=== PATIENT | male | born 1955 | race Caucasian/White ===

== ENCOUNTER 2022-07-03 11:15 | Outpatient (RCR) | payer MEDICARE, SELFPAY | END 2023-03-27 23:59 | disposition home or self-care (01) | PROVIDERS: Visit Provider Nurse Practitioner Family | DX: M17.0 Bilateral primary osteoarthritis of knee (principal); Z51.89 Encounter for other specified aftercare | CPT/HCPCS: 97110; 97161 ==

== ENCOUNTER 2022-09-02 19:36 | Emergency (ER) | payer MEDICARE, SELFPAY ==
[2022-09-02 19:40] VITALS: BP 187/105; PULSE 82; RESP 18; TEMP 36.9; O2SAT 96; BMI 32.7
--- NOTE | 2022-09-02 19:53 | ED.WOUNDLAC ---
HPI - Wound/Laceration General Chief Complaint: Laceration/Wound Stated Complaint: Cut on head Time Seen by Provider: 09/02/22 19:45 History of Present Illness HPI narrative: This 67-year-old male comes in for evaluation and treatment of a scalp laceration that occurred this morning. He was getting out of his pickup and bumped his head. He said there was not much bleeding and he did not have loss of consciousness. He is not on any blood thinners. He does not report a headache. He comes in this evening thinking that he should probably have it checked out. Related Data Home Medications Medication Instructions Recorded Confirmed amlodipine 10 mg tablet 10 mg PO QDAY 08/26/22 09/02/22 atenolol 50 mg tablet 50 mg PO QDAY 08/26/22 09/02/22 hydrochlorothiazide 50 mg tablet 50 mg PO QDAY 08/26/22 09/02/22 losartan 100 mg tablet 100 mg PO QDAY 08/26/22 09/02/22 meloxicam 15 mg tablet 15 mg PO QDAY 08/26/22 09/02/22 sodium fluoride 1.1 %-potassium 1 applic PO DAILY 08/26/22 09/02/22 nitrate 5 % dental paste tadalafil 20 mg tablet 20 mg PO PRN 08/26/22 08/26/22 Allergies Allergy/AdvReac Type Severity Reaction Status Date / Time No Known Drug Allergies Allergy Verified 09/02/22 19:44 Review of Systems Status of ROS: Reports: 10 or more systems reviewed and unremarkable except as noted in History and below Narrative: Constitutional: No fevers, no weight gain or loss. Eyes: No discharge. No vision changes. HENT: No congestion, no sore throat, no ear pain. Cardiovascular: No chest pain, no palpitations. Respiratory: No shortness of breath, no wheezes, no cough. Gastrointestinal: No abdominal pain, no vomiting, no diarrhea. Genitourinary: No dysuria, no hematuria. Musculoskeletal: Normal range of motion. Skin: No rashes, no pruritis. Neurological: No dizziness, weakness, sensory change, speech change. Endo/Heme/Allergies: No bruising or bleeding. No polydipsia. Pysch: no suicidality, no anxiety, no insomnia. All other systems reviewed and are negative. [facility] Medical History Encounter related to worker's compensation claim (10/19/18) Surgical History History of appendectomy History of back surgery Family History Other High cholesterol Renal cancer Social History Smoking Status: Former smoker Do you use any of these nicotine containing products: None Second hand tobacco smoke exposure: No How often do you have a drink containing alcohol: never AUDIT-C Alcohol total score: 0 Non-prescribed substance use: denies use Exam Narrative: Exam Narrative: Constitutional: Well-developed, well-nourished, no acute distress. HEENT: 2 cm irregular laceration the top of the head in the region of the scalp. He has very little hair in this area. Neck: Normal range of motion. Nontender. Supple. Heart: Regular. No murmurs. Normal rate. Intact distal pulses. Lungs: Clear to auscultation. No chest discomfort. No wheezes, rhonchi, or rales. Abdomen: Normal bowel sounds. Nontender. No rebound tenderness. Genitalia: Deferred. Back: No midline tenderness. Normal range of motion. Extremities: Normal range of motion. No injury. Skin: Intact. No rash. Warm. No erythema or pallor. Neurologic: No altered sensation. No weakness. Alert and oriented. Psychiatric: No suicidality. No anxiety or depression. No insomnia. Nursing notes and vitals signs are reviewed. Const: Vital Signs, click to edit/add: Vital Signs - 24 hr 09/02/22 19:40 Temperature 98.5 F Pulse Rate [Right Pulse Oximeter] 82 Respiratory Rate 18 Blood Pressure [Ri ght Upper Arm] 187/105 H Pulse Oximetry 96 Oxygen Delivery Me thod Room Air Course Vital Signs Vital signs: Initial Vital Signs Temperature 98.5 F 09/02/22 19:40 Temperature Source Temporal Artery Scan 09/02/22 19:40 Pulse Rate 82 09/02/22 19:40 Respiratory Rate 18 09/02/22 19:40 Blood Pressure 187/105 H 09/02/22 19:40 Blood Pressure Mean 132 09/02/22 19:40 Blood Pressure Position Sitting 09/02/22 19:40 Pulse Oximetry 96 09/02/22 19:40 Oxygen Delivery Method 09/02/22 19:40 Vital Signs Temperature 98.5 F 09/02/22 19:40 Pulse Rate 82 09/02/22 19:40 Respiratory Rate 18 09/02/22 19:40 Blood Pressure 187/105 H 09/02/22 19:40 Pulse Oximetry 96 09/02/22 19:40 Oxygen Delivery Method 09/02/22 19:40 Temperature 98.5 F 09/02/22 19:40 Pulse Rate 82 09/02/22 19:40 Respiratory Rate 18 09/02/22 19:40 Blood Pressure 187/105 H 09/02/22 19:40 Pulse Oximetry 96 09/02/22 19:40 Oxygen Delivery Method 09/02/22 19:40 MDM - Wound/Laceration MDM Narrative Medical decision making narrative: This patient has a wound on the top of his head that occurred this morning. The skin edges are rather well approximated and there is no active bleeding. The wound is on its way to recovery. I did cleanse the wound but did not open it to explored to its base. My opinion into the patient was that this wound seems to be healing properly on its own. I did apply Dermabond to assist in this process. Discharge Plan Discharge Clinical Impression: Laceration of scalp Patient Disposition: Home, Self-Care Condition: Stable Additional Instructions: Use [id number]-elp-[id number] medicines as needed and directed. Follow up with MD or return if worsening. Prescriptions: No Action sodium fluoride-pot nitrate 1.1-5 % paste 1 applic PO DAILY amlodipine 10 mg tablet 10 mg PO QDAY Label Comments: TAKE 1 TABLET BY MOUTH EVERY DAY meloxicam 15 mg tablet 15 mg PO QDAY Label Comments: TAKE 1 TABLET BY MOUTH EVERY DAY atenolol 50 mg tablet 50 mg PO QDAY Label Comments: TAKE 1 TABLET BY MOUTH EVERY DAY losartan 100 mg tablet 100 mg PO QDAY Label Comments: TAKE 1 TABLET BY MOUTH EVERY DAY hydrochlorothiazide 50 mg tablet 50 mg PO QDAY Label Comments: TAKE 1 TABLET BY MOUTH EVERY DAY tadalafil 20 mg tablet 20 mg PO PRN Label Comments: TAKE 1 TABLET BY MOUTH DAILY IF NEEDED FOR ERECTILE DYSFUNCTION. TAKE 30 MINUTES BEFORE SEX Follow Up/Referrals: Provider,Not a Local [Primary Care Provider] - Stand Alone Forms: [facility] Info Instructions
--- NOTE | 2022-09-02 19:56 | ED.NURSE ---
Last tetn 05/18/2018
== END 2022-09-02 20:21 | disposition home or self-care (01) ==
LOC: ED 20:09
PROVIDERS: Emergency Provider Emergency Medicine Emergency Medical Services
DX: S01.01XA Laceration without foreign body of scalp, initial encounter (principal); W26.9XXA Contact with unspecified sharp object(s), initial encounter
CPT/HCPCS: 12001; 99283; 99284

== ENCOUNTER 2024-07-11 07:10 | Emergency (ER) | payer MEDICARE, SELFPAY ==
[2024-07-11 07:15] VITALS: BP 191/111; PULSE 125; RESP 22; TEMP 36.4; O2SAT 95; BMI 34.0
--- NOTE | 2024-07-11 07:18 | CT_ITS ---
Patient: DONITA THOMAS Facility:?[facility] Patient ID:?[id number] Site Patient ID:?[id number]. Site :?[id number] Study:?CT-Head w/o-07/11/2024 7:28:50 AM Ordering Physician:Jessica Martinez Final Report: INDICATION: Injury COMPARISON: None TECHNIQUE: CT examination of the head was performed as axial sections without intravenous contrast. Images were obtained from the vertex of the skull through the skull base. Please note that all CT scans at this facility use dose modulation, iterative reconstruction, and/or weight-based dosing when appropriate to reduce radiation dose to as low as reasonably achievable. FINDINGS: The brain shows no sign of mass lesion, mass effect, hemorrhage, or edema. The ventricles and sulci are normal in appearance for the patient`s age. The visualized portions of the orbits are normal in appearance. Soft tissue injury in the region the supraorbital area on the left. No visible calvarial fracture. There is gas within the soft tissues related most likely laceration. No foreign body. The osseous structures are normal in their appearance with no sign of abnormality in the skull base or calvarium. IMPRESSION: 1. No acute intracranial posttraumatic findings. 2. Soft tissue injury centered in the left supraorbital area. There is gas within soft tissues and induration but no foreign body or subjacent calvarial injury. The orbits as visualized appear normal. Please note that all CT scans at this facility use dose modulation, iterative reconstruction, and/or weight-based dosing when appropriate to reduce radiation dose to as low as reasonably achievable. Dictated by Laci Ruiz MD @ 07/11/2024 7:44:13 AM Signed by:?Laci Ruiz MD @07/11/2024 7:44:13 AM (Electronic Signature)
[2024-07-11 07:38] VITALS: BP 166/106; PULSE 103; O2SAT 96
--- OUTSIDE RECORDS SUMMARY | 2024-07-11 07:46 | XMS_ITS | Data Portability ---
Author Organization [facility] Mikaylalo gy, [facility] Address [address] [place] [address] Care Team Providers Care Mixer Whipped Topping Name Role Phone CHAPITO STEINER Primary Care Provider Assessment No assessment recorded. Plan of Treatment Reminders Order Date Submit Date Provider Last Modified By Organization Details Last Modified Time Details Appointments None record ed. Lab None record ed. Referral None record ed. Procedures None record ed. Surgeries None record ed. Imaging None record ed. Medication Orders None record ed. Patient TargetsNo targets recorded. Patient InstructionsNo instructions recorded. Reason for Referral None Reported. 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 Procedures Surgical History Date Name Laterality Status Provider Name and Address Organization Details Recorded Time 05/18/20 18 Remove lung pneumonectomy completed Not Available [facility] 02/17/2020 14:08:15 06/03/20 16 Colonoscopy thru stoma spx completed Not Available [facility] 02/17/2020 14:08:15 01/16/20 16 Removal of hydrocele completed Not Available [facility] 02/17/2020 14:08:15 04/24/20 15 Us urine capacity measure completed Not Available [facility] 02/17/2020 14:08:15 04/08/19 80 Appendectomy add-on completed Not Available [facility] 02/17/2020 14:08:15 Remove spine lamina 1/2 lmbr completed Not Available [facility] 02/17/2020 14:08:15 Imaging Results None recorded. Procedure Notes None recorded. Medical Equipment None Reported. Allergies No known drug allergies Medications Name Sig Start Date Stop Date Status Note LastModified by Organization Details LastModified Time losartan 50 mg tablet TAKE 1 TABLET BY MOUTH EVERY DAY active Not Available Not Available No t Available atorvastatin 80 mg tablet TAKE 1 TABLET BY MOUTH DAILY active Not Available Not Available Not Available meloxicam 15 mg tablet TAKE 1 TABLET BY MOUTH EVERY DAY active Not Available Not Available No t Available metoprolol succinate ER 100 mg tablet,exten ded release 24 hr TAKE 1 TABLET BY MOUTH DAILY DO NOT CRUSH OR CHEW active Not Available Not Available No t Available clopidogrel 75 mg tablet TAKE 1 TABLET BY MOUTH DAILY active Not Available Not Available Not Available amlodipine 5 mg tablet TAKE 1 TABLET BY MOUTH EVERY DAY active Not Available Not Available No t Available sildenafil 100 mg tablet TAKE ONE TABLET BY MOUTH EVERY DAY NEEDED FOR E.D. TAKE 30 MINUTES TO 4 HOURS BEFORE SEXUAL ACTIVITY, MAX 100MG PER 24 HOURS active Not Available Not Available No t Available losartan 100 mg-hydrochlo rothiazide 25 mg tablet active Not Available Not Available Not Available terbinafine HCl 250 mg tablet active Not Available Not Available Not Available amlodipine 10 mg tablet TAKE 1 TABLET BY MOUTH EVERY DAY active Not Available Not Available No t Available nitroglyceri n 0.4 mg sublingual tablet active Not Available Not Available Not Available hydrochlorot hiazide 25 mg tablet TAKE 1 TABLET (25 MG TOTAL) BY MOUTH DAILY. active Not Available Not Available No t Available losartan 100 mg tablet TAKE 1 TABLET BY MOUTH EVERY DAY active Not Available Not Available No t Available atenolol 50 mg tablet TAKE 1 TABLET BY MOUTH EVERY DAY active Not Available Not Available No t Available tadalafil 20 mg tablet active Not Available Not Available No t Available mirtazapine 7.5 mg tablet TAKE 1 TABLET BY MOUTH AT BEDTIME. active Not Available Not Available No t Available sodium fluoride 1.1 %-potassium nitrate 5 % dental paste APPLY 1 INCH STRIP TO SOFT TOOTHBRUSH, BRUSH FOR AT LEAST 1 MINUTE, EXPECTORATE AND RINSE THOROUGHLY active Not Available Not Available N ot Available GaviLyte-G 236 gram-22.74 gram-6.74 gram-5.86 gram oral solution TAKE 4,000 ML BY MOUTH ONE TIME FOR 1 DOSE active Not Available Not Available N ot Available Vitals Date Recorded Body height Body mass index (BMI) Body weight Provider Name and Address Organization Details Last Updated DateTime 05/05/2023 172.72 cm 31.9 kg/m2 82555.4 g Chitra Camilo [facility] 05/05/2023 14:20:22 Social History Question Answer Notes LastModified by Organizat ion Details LastModified Time Tobacco Smoking Status Former Smoker Chitra Ton santos [facility] 05/05/2023 14:20:48 When Did You Quit Smoking? 16+yearssince lastcigarette Information not available 05/05/2023 Race White Information n ot available 02/17/2020 Marital Status Informati on not available 02/17/2020 What Was The Date Of Your Most Recent Tobacco Screening? 05/05/2023 Information not available 05/05/2023 How Much Tobacco Do You Smoke? 0.25 PPD Information not available 02/17/2020 Sex: Unknown Functional Status None recorded. Mental Status None recorded. Family History Nothing Reported Notes:Hypertension:Mother Hypercholesterolemia:Mother Cancer, breast:Sister Cancer, renal cell:Father Heart attack:Brother Medical History Condition Response High Blood Pressure Y Diabetes N High Cholesterol Y Past Encounters Encounter ID Performer Location Encounter Start Date Encounter Closed Date Diagnosis/Indication Diagnosis SNOMED-CT Code Diagnosis ICD10 Code [id number] Bari Vivas MD [facility] [address] [id number] 05/05/2023 14:14:30 05/14/2023 13:08:10 Primary erectile dysfunction 729877812 N52.9 Health Concerns Section Related Observation LastModified by Organization Detai ls LastModified Time None Recorded Concern Status LastModified by Organization Details LastModified Time None Recorded Advance Directives Directive None Recorded Payers Encounter Date Sequence Insurance Name Policy Number Policy Cerda Covered Member ID Cerda Member ID Guarantor Name 05/05/2023 1 [facility] (MEDICARE REPLACEMENT/A DVANTAGE - PPO) [id number] Edgard Teague [id number] Edgard Teague Notes Date Note Type Note Provider Name and Address Organization Details Recorded Time 05/05/2023 text/html HPI Notes: 68 yo male with history of HTN and smoking (quit in 2017)- presents for evaluation of erectile dysfunction. He had a Left hydrocelectomy (01/18/16) by Dr. Candi Cooper. He reports increasing trouble obtaining and maintaining. He has occasional morning erections. He denies penile pain or curvature. He states libido is good. He has used Viagra 100 mg with okay results. 07/30/21 - He presents penile injection (Trimix) instruction. He notes no change in erections. He voids every 2-4 hours during the day and 2x/night. He denies hesitancy, urgency, or dysuria. 05/05/23 - He presents for follow-up on ED. He states Trimix (0.1-0.2 mL) provides adequate erections. He every 2-4 hours during the day and 2x/night. _ PSA - 0.99 (09/09/14) - 0.90 (05/18/18) - 1.95 (08/23/19) - 1.72 (01/30/21) Bari Vivas MD [address] [place] [address],[facility] [address], [place], [address], [place] [facility] 05/05/2023 14:55:18
--- OUTSIDE RECORDS SUMMARY | 2024-07-11 07:46 | XMS_ITS | Clinical Summary ---
Author Organization [facility] Address [address] [place] [address] Care Team Providers Care Varnish Supervisor Name Role Phone Elsewhere, Pcp Primary Care Provider Unavailabl e Source Comments Patient records contain information from all sites at [facility]. For routine questions regarding patient records, call [phone] during business hours, M-F 8:00 AM - 5:00 PM Central Time. Record requests for emergency care only can be directed to [phone] at any time.[facility] Allergies No known active allergies Medications * This document contains information received from the source organization and may not represent a complete record from that organization. aspirin 81 mg chewable tablet Chew 1 tablet (81 mg total) daily. 30 tablet 11 3 Active atorvastatin (LIPITOR) 80 mg tablet Take 1 tablet (80 mg total) by mouth daily. 90 tablet 3 11/04/2022 4:45 PM PRESCHOOL PRINCIPAL 3 Active nitroglycerin (NITROSTAT) 0.[address] 1 tablet (0.4 mg total) under the tongue every 5 (five) minutes as needed for chest pain. May repeat every 5 minutes for up to 3 doses 100 tablet 11 11/04/2022 4:45 PM PRESCHOOL PRINCIPAL 3 Active sodium fluoride-pot nitrate 1.1-5 % paste as needed. 3 Active metoprolol succinate (TOPROL-XL) 100 mg 24 hr tablet Take 0.5 tablets (50 mg total) by mouth daily. Do not crush or chew. 90 tablet 3 3 Active UNABLE TO FIND Testosterone replacement therapy Active losartan (COZAAR) 100 mg tablet take 1 tablet by mouth every day 90 tablet 3 4 Active hydroCHLOROthia zide (HydroDiuril) 25 mg tablet TAKE 1 TABLET (25 MG TOTAL) BY MOUTH DAILY. 90 tablet 1 4 Active amLODIPine (Norvasc) 10 mg tablet take 1 tablet by mouth every day 90 tablet 3 4 Active Active Problems Problem Noted Date Diagnosed Date Coronary Stent Status Post 12/09/2022 Atherosclerotic Heart Diseas e Of [place] Coronary Artery Without Angina Pectoris 12/09/2022 Mitral Valve Acquired Disorder 12/09/2022 Hypertensive Heart Disease Without Heart Failure 11/03/2022 ST Elevation Myocardial Infa rction Involving Right Coronary Artery 11/03/2022 Dysfunction Erectile 10/30/2022 Overview (10/30/2022): Added automatically from request for surgery [id number] Peyronie's Disease 10/30/2022 Overview (10/30/2022): Added automatically from request for surgery [id number] Obstructive Sleep Apnea Adult 07/11/2021 Umbilical Hernia Without Obstruction Or Gangrene 09/16/2019 Hydrocele 11/13/2009 Overview (10/31/2022): Left Resolved Problems Problem Noted Date Diagnosed Date Resolved Date ST Elevation Myocardial Infa rction Of Unspecified Site 11/03/2022 11/03/2022 Encounters Date Type Department Care Team Description 06/02/2024 Refill Department of Cardiovascular Diseases in [address] [id number] Dakota Hummel, MASOOD, C.N.P. Med Refill from Last 3 Months Family History Relation Name Status Comments Brother (Age 40) [place] Social History Tobacco Use Types Packs/Day Years Used Date Smoking Tobacco: Never Passive Smoke Exposure: Past Smokeless Tobacco: Never Tobacco Cessation:Counseling Given: Not Answered Alcohol Use Standard Drinks/Week Comments Yes 0 (1 standard drink = 0.6 oz pur e alcohol) Humiliation, Afraid, Rape, and Kick questionnair e Answer Date Recorded Within the last year, have y ou been afraid of your partner or ex-partner? No 10/29/2022 Within the last year, have y ou been humiliated or emotionally abused in other ways by your partner or ex-partner? No Within the last year, have y ou been kicked, hit, slapped, or otherwise physically hurt by your partner or ex-partner? No 10/29/2022 Within the last year, have y ou been raped or forced to have any kind of sexual activity by your partner or ex-partner? No 10/29/2022 Social Connection and Isolation Panel [NHANES] A nswer Date Recorded In a typical week, how many times do you talk on the phone with family, friends, or neighbors? Twice a week 10/29/19 How often do you get togethe r with friends or relatives? Once a week 10/29/2022 How often do you attend chur ch or spiritism services? 1 to 4 times per year 10/29/2022 Do you belong to any clubs o r organizations such as nondenominational groups, unions, fraternal or athletic groups, or school groups? Yes 10/29/2022 How often do you attend meet ings of the clubs or organizations you belong to? 1 to 4 times per year 10/29/2022 Are you , , di vorced, , never , or living with a partner? 10/29/2022 AUDIT-C Answer Date Recorded Q1: How often do you have a drink containing alc ohol? Monthly or less 10/29/2022 Q2: How many drinks containi ng alcohol do you have on a typical day when you are drinking? 1 or 2 10/29/2022 Q3: How often do you have si x or more drinks on one occasion? Never 10/29/2022 Overall Financial Resource Strain (CARDIA) Answe r Date Recorded How hard is it for you to pa y for the very basics like food, housing, medical care, and heating? Not hard at all 10/29/2022 [facility] [place] of Occupat ional Health - Occupational Stress Questionnaire Answer Date Recorded Do you feel stress - tense, restless, nervous, or anxious, or unable to sleep at night because your mind is troubled all the time - these days? To some extent 10/29/2022 Exercise Vital Sign Answer Date Recorde d On average, how many days pe r week do you engage in moderate to strenuous exercise (like a brisk walk)? 2 days 10/29/2022 On average, how many minutes do you engage in exercise at this level? 40 min 10/29/2022 Hunger Vital Sign Answer Date Recorded Within the past 12 months, y ou worried that your food would run out before you got the money to buy more. Never true 10/29/19 Within the past 12 months, t he food you bought just didn't last and you didn't have money to get more. Never true 10/29/2022 PRAPARE - Transportation Answer Date Re corded In the past 12 months, has l ack of transportation kept you from medical appointments or from getting medications? No 10/10 In the past 12 months, has l ack of transportation kept you from meetings, work, or from getting things needed for daily living? No 10/29/2022 Housing Stability Vital Sign Answer Bull e Recorded In the last 12 months, was t here a time when you were not able to pay the mortgage or rent on time? No 10/29/2022 In the last 12 months, how many places have you lived? 1 10/29/2022 In the last 12 months, was t here a time when you did not have a steady place to sleep or slept in a retirement (including now)? No 10/29/2022 Nutrition Answer Date Recorded On average, how many serving s of fruits and vegetables do you eat per day (serving size is equal to 1 cup or approximately the size of a tennis ball)? 0-1 10/29/2022 Dental Answer Date Recorded Dental: Regular Dentist Yes 10/29/19 Employment Answer Date Recorded Employment status Employed and actively working without restrictions 10/29/2022 Education Answer Date Recorded What is the highest level of school you have completed or the highest degree you have received? Associate degree: occupational, technical, or vocational program 10/29/2022 Sex and Gender Information Value Date Recorded Sex Assigned at Male 10/30/2022 9:15 AM PRESCHOOL PRINCIPAL Legal Sex Male 4:06 PM PRESCHOOL PRINCIPAL Gender Identity Male 10/30/2022 9:15 AM PRESCHOOL PRINCIPAL Sexual Orientation Straight 10/30/2022 9: 15 AM PRESCHOOL PRINCIPAL Last Filed Vital Signs Vital Sign Reading Time Taken Comments Blood Pressure 148/84 03/10/2023 11:27 AM CDT Pulse 62 03/10/2023 11:27 AM CDT Temperature 36.3 ??C (97.3 ??F) 11/04/2022 3:45 PM CS T Respiratory Rate 27 11/04/2022 3:45 PM PRESCHOOL PRINCIPAL Oxygen Saturation 94% 03/10/2023 11:24 AM CDT Inhaled Oxygen Concentration - - Weight 94.6 kg (208 lb 8.9 oz) 03/10/2023 11:24 AM CDT Height 172.7 cm (5' 8) 11/03/2022 3:30 AM PRESCHOOL PRINCIPAL Body Mass Index 31.71 11/03/2022 3:30 AM PRESCHOOL PRINCIPAL Plan of Treatment Health Maintenance Due Date Last Done Comments CT Colonography 1955 Cologuard 1955 FIT 1955 Hepatitis C Screening 1955 RSV vaccine - (32-36 weeks) or 60+ years (1 - Risk 60-74 years 1-dose series) 2013 Zoster Vaccines (2 of 2) 07/13/2018 05/18/2018 Office Visit for Blood Pressure Check / Re-check 06/10/2023 03/10/2023 Depression Screening (Annual PHQ-2) 09/08/2023 Fall Risk Screen (Annual) 09/08/2023 COVID-19 Vaccine ( season) 2024 09/09/2023, 06/21/2022, 09/22/2021, Additional history exists Influenza Vaccine (#1) 2024 , 05/08/2022, 05/07/2022, Additional history exists Lipid (Cholesterol) Screening 09/05/2024 09/05/2023, 11/03/2022, 04/01/2022, Additional history exists Creatinine Level (Kidney Function Test) 10/20/2024 10/20/2023, 09/05/2023, 04/17/2023, Additional history exists Potassium Level 10/20/2024 10/20/2023, 08/09, 04/17/2023, Additional history exists Sodium Level 10/20/2024 10/20/2023, 08/09, 12/20/2022, Additional history exists Fasting Glucose for Diabetes Screening 09/05/2026 09/05/2023, 12/20/2022, 12/06/2022, Additional history exists DTaP,Tdap,and Td Vaccines (3 - Td or Tdap) 05/18/2028 05/18/2018, 09/17/2006 Colonoscopy 08/08/2032 08/08/2022 Colorectal Cancer Screening 08/08/2032 Pneumococcal vaccine (65+ years) Completed 10/04/2021, 08/19/2020, 05/18/2018 IPV Vaccines Aged Out No longer eligi ble based on patient's age to complete this topic Medical Devices Implanted Type Area Security Control Assessor Device Identifier Shelf Expiration Date Model / Serial / Lot Stnt Synergy Xd De 5.00x12 - [id number] Implanted:Qty : 1 on 11/03/2022 by Neo Vasquez M.D., Ph.D. at [facility] Cardiac Stent N/A: Coronary [employer] 08/15/2023 [id number] / / [id number] Description:Mid RCA Procedures Procedure Name Priority Date/Time Associated Diagnosis Comments SODIUM, S/P Routine 10/20/2023 11:35 AM PRESCHOOL PRINCIPAL Hypertension Essential Primary POTASSIUM, S/P Routine 10/20/2023 11:35 AM PRESCHOOL PRINCIPAL Hypertension Essential Primary CREATININE WITH EGFR, S/P Routine 10/20/2023 11:35 AM PRESCHOOL PRINCIPAL Hypertension Essential Primary BASIC METABOLIC PANEL, S/P Routine 12/20/2022 12:[address] Elevation Myocardial Infarction Involving Right Coronary Artery (HCC) LIPID PANEL, S Timed 11/03/2022 7:10 AM PRESCHOOL PRINCIPAL from Last 3 Months or Most Recently Relevant to Health Maintenance Results * Sodium (10/20/2023 11:35 AM PRESCHOOL PRINCIPAL) Sodium, P 142 135 - 145 mmol/L 10/20/2023 2:18 PM PRESCHOOL PRINCIPAL OWAT Blood (Blood, Venous) 10/20/2023 11:35 AM PRESCHOOL PRINCIPAL 10/20/2023 1:32 PM PRESCHOOL PRINCIPAL Dakota Hummel APRN, C.N.P. LAB BLOOD ADD-ON Noa l Result Performing Organization Address City/[facility]/ZIP Co de Phone Number [facility] [address] [place] [id number], [place] OWAT [facility] [place] [address] [place] [phone] * Potassium (10/20/2023 11:35 AM PRESCHOOL PRINCIPAL) Potassium, P 4.1 3.6 - 5.2 mmol/L 10/20/2023 2:18 PM PRESCHOOL PRINCIPAL OWAT Blood (Blood, Venous) 10/20/2023 11:35 AM PRESCHOOL PRINCIPAL 10/20/2023 1:32 PM PRESCHOOL PRINCIPAL us Dakota Hummel APRN, C.N.P. LAB BLOOD ADD-ON Noa l Result Performing Organization Address [facility] Co de Phone Number [facility] [address] [place] [address], [place] OWAT [facility] [place] [address] [place] [phone] * Creatinine with Estimated GFR (10/20/2023 11:35 AM PRESCHOOL PRINCIPAL) Creatinine 1.20 0.74 - 1.35 mg/dL 10/20/2023 2:18 PM PRESCHOOL PRINCIPAL OWAT Estimated GFR (eGFR) 65 >=60 mL/min/BSA 10/20/2023 2:18 PM PRESCHOOL PRINCIPAL OWAT Comment: Estimated GFR calculated using the 2020 CKD_EPI creatinine equation. Blood (Blood, Venous) 10/20/2023 11:35 AM PRESCHOOL PRINCIPAL 10/20/2023 1:32 PM PRESCHOOL PRINCIPAL us Dakota Erica Hummel APRN, C.N.P. LAB BLOOD ADD-ON Noa l Result [facility] [address] [place] [address], [place] OWAT [facility] [place] [address] [place] [address] * Basic Metabolic Panel (12/20/2022 12:38 PM CDT) Potassium, P 4.1 3.6 - 5.2 mmol/L 12/20/2022 4:11 PM CDT OWAT Sodium, P 141 135 - 145 mmol/L 12/20/2022 4:11 PM CDT OWAT Chloride, P 100 98 - 107 mmol/L 12/20/2022 4:11 PM CDT OWAT Bicarbonate, P 29 22 - 29 mmol/L 12/20/2022 4:11 PM CDT OWAT Anion Gap, P 12 7 - 15 12/20/2022 4:11 PM CDT OWAT BUN (Blood Urea Nitrogen), P 16 8 - 24 mg/dL 12/20/2022 4:11 PM CDT OWAT Creatinine 1.29 0.74 - 1.35 mg/dL 12/20/2022 4:11 PM CDT OWAT Estimated GFR (eGFR) 60 >=60 mL/min/BSA 12/20/2022 4:11 PM CDT OWAT Comment: Estimated GFR calculated using the 2020 CKD_EPI creatinine equation. Calcium, Total, P 9.7 8.8 - 10.2 mg/dL 12/20/2022 4:11 PM CDT OWAT Glucose, P 79 70 - 140 mg/dL 12/20/2022 4:11 PM CDT OWAT Blood (Blood, Venous) 12/20/2022 12:38 PM CDT 12/20/2022 3:32 PM CDT us Yamileth Martínez APRN, C.N.P., D.N.P. LAB BLOOD ADD-ON Final Result [facility] [address] [place] [address], [place] OWAT [facility] [place] [address] [place] [address] * Lipid Panel (11/03/2022 7:10 AM PRESCHOOL PRINCIPAL) Triglycerides 48 mg/dL 11/03/2022 9:01 AM PRESCHOOL PRINCIPAL DTL Comment: ----REFERENCE VALUE---- Normal: <150 mg/dL Borderline High: 150-199 mg/dL High: 200-499 mg/dL Very High: > or =500 mg/dL Cholesterol, Total 171 mg/dL 2022 9:01 AM PRESCHOOL PRINCIPAL DTL Comment: ----REFERENCE VALUE---- Desirable: < 200 mg/dL Borderline High: 200 - 239 mg/dL High: > or = 240 mg/dL Cholesterol, LDL, Calculated 118 mg/dL 11/03/2022 9:01 AM PRESCHOOL PRINCIPAL DTL Comment: ----REFERENCE VALUE---- Desirable: <100 mg/dL Above Desirable: 100-129 mg/dL Borderline High: 130-159 mg/dL High: 160-189 mg/dL Very High: >=190 mg/dL ----ADDITIONAL INFORMATION---- LDL cholesterol calculated using the Sharma/NIH equation. Cholesterol, HDL, S 43 >=40 mg/dL 11/03/2022 9:01 AM PRESCHOOL PRINCIPAL DTL Cholesterol, Non-HDL, Calculated 128 mg/dL 11/03/2022 9:01 AM PRESCHOOL PRINCIPAL DTL Comment: ----REFERENCE VALUE---- Desirable: <130 mg/dL Above Desirable: 130-159 mg/dL Borderline High: 160-189 mg/dL High: 190-219 mg/dL Very High: > or =220 mg/dL Fasting (8 HR or more) Yes 11/03/2022 8:31 AM PRESCHOOL PRINCIPAL DTL Blood (Blood, Venous) 11/03/2022 7:10 AM PRESCHOOL PRINCIPAL 11/03/2022 8:31 AM PRESCHOOL PRINCIPAL us Angeline White M.D., M.S. LAB BLOOD ADD-ON Final R esult [facility] [address] [place] [address], [place] DTL [facility] [address] [place] [address] from Last 3 Months or Most Recently Relevant to Health Maintenance Insurance A[employer] Advance Directives For more information, please contact: [phone] * Full Code (Latest Code Status on File) Date Activated Date Inactivated Comments 11/03/2022 6:18 AM 11/04/2022 6:46 PM Question Answer Comments Full Code: Discussed * Full Code Date Activated Date Inactivated Comments 11/03/2022 3:21 AM 11/03/2022 6:18 AM Question Answer Comments Full Code: Discussed Care Teams Varnish Supervisor Relationship Specialty Start Date End Date Elsewhere, Pcp PCP - General Internal Medicine 11/04/22
--- OUTSIDE RECORDS SUMMARY | 2024-07-11 07:47 | XMS_ITS | Clinical Summary ---
Author Organization [facility] Address [place], [place] [address] Care Team Providers Care Stock Control Clerk Name Role Phone Hina Dunham NP Primary Care Provider Allergies No known active allergies Medications Medication Sig Dispensed Refills Start Date End Date Status PreviDent 5000 Sensitive 1.1-5 % pste 01/02/2021 Active atorvastatin (LIPITOR) 80 mg tablet 11/04/2022 Active metoprolol succinate (TOPROL XL) 100 mg Sustained-Release tablet 11/04/2022 Active nitroglycerin (NITROSTAT) 0.4 mg sublingual tablet 11/04/2022 Active CPAPIndications:PAUL (obstructive sleep apnea) CPAP machine for home use at pressure 10 cmw, full face mask x1/3month with a full face cushion x1/mo 1 Each 11 05/13/2023 Active amLODIPine (NORVASC) 10 mg tabletIndications:Mary corey hypertension Take 0.5 Tablets (5 mg) by mouth once daily. 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 04/11/2024 Active losartan (COZAAR) 100 mg tablet Take 100 mg by mouth once daily. Active atenoloL (TENORMIN) 50 mg tablet Take 1 Tablet by mouth once daily. Active Active Problems Problem Noted Date Diagnosed Date Numbness and tingling of right upper extremity 0 11/11/2023 ST elevation myocardial infa rction involving right coronary artery 11/07/2022 Serrated adenoma of colon 08/08/2022 Overview (08/13/2022): Repeat colonoscopy in 5 years PAUL 07/03/2021 AHI-23 07/11/2021 Umbilical hernia without obstruction and without gangrene 09/16/2019 Personal history of colonic polyps 06/05/2016 Hydrocele, unspecified 11/13/2009 Overview (11/13/2009): Left Resolved Problems Problem Noted Date Diagnosed Date Resolved Date PAUL (obstructive sleep apnea) 06/26/2021 Central sleep apnea 06/26/20 21 Encounters Date Type Department Care Team Description 06/21/2024 3:30 PM CDT Office Visit [address] [id number] Hina Dunham NP Medication Management 06/20/2024 Travel 06/02/2024 Telephone [facility] [address] [place] [address] Diego Mcleod, AuD Hearing Aid (slat pickler) 05/28/2024 Telephone [facility] [address] [place] [address] Diego Mcleod, AuD Hearing Aid 04/27/2024 3:45 PM CDT Office Visit [facility] [address] [place] [address] Kwesi Law MD Employment Physical (69 year old male) 04/27/2024 Travel from Last 3 Months Immunizations Name Administration Dates Next Due COVID-19 VACCINE SPIKEVAX (M ODERNA 50MCG/0.5ML) 12YO+ PFS 09/05/2023 COVID-19 vaccine (Sanghvi-Bio NTech 30mcg/0.3mL) 12YO+ BIVALENT PF, MDV 06/21/2022 COVID-19 vaccine (Pfizer-Bio NTech 30mcg/0.3mL) PF, MDV 09/22/2021,12/05/2020,11/14/2020 Influenza, High-dose Inactivated 06/05/2019 Influenza, High-dose Quadriv alent Inactivated 05/08/2022,08/19/2020 Influenza, Inactivated AIIV4 (Age 65+ Years) Preserv Free 09/05/2023,05/07/2022,09/22/2021 Influenza, Inactivated IIV3 (Age 65+ Years) Preserv Free 05/08/2022,05/18/2018 Pneumococcal Poly,23-Valent (Pneumovax) 10/04/19 22 Pneumococcal conj 13-Valent (Prevnar 13) 020,05/18/2018 Td, Preservative Free (age >= 7 Years) 8 Tdap 09/17/2006 Zoster (Shingrix-RZV, recombinant) 05/18/2018 Family History Medical History Relation Name Comments Heart Disease Brother of an VT at age 42. Good Health Mother Relation Name Status Comments Brother Father Renal cancer Mother Alive Sister (Age Breast cancer) Social History Tobacco Use Types Packs/Day Years Used Date Smoking Tobacco: Former Cigarettes Q uit: 09/08/2016 Passive Smoke Exposure: Current Smokeless Tobacco: Former Quit: 03/06/2014 Tobacco Cessation:Counseling Given: Yes Comments:no ecig no vape Alcohol Use Standard Drinks/Week Comments Yes 0 (1 standard drink = 0.6 oz pur e alcohol) 2-3 per month PHQ-2 Answer Date Recorded PHQ-2 TOTAL SCORE 0 09/05/2023 Social Connections Answer Date Recorded Do you often feel lonely or isolated from those around you? 0 06/20/2024 Financial Resource Strain Answer Date R ecorded Difficulty of Paying Living Expenses 3 06/20/2024 Difficulty of Paying Living Expenses Not on file 06/20/2024 Food Insecurity Answer Date Recorded Do you worry your food will run out before you are able to buy more? 1 06/20/2024 Transportation Needs Answer Date Record ed Does lack of transportation keep you from medica l appointments? 1 06/20/2024 Does lack of transportation keep you from work, meetings or getting things that you need? 1 06/20/2024 Housing Stability Answer Date Recorded What is your housing situation today? 1 06/20/2024 Sex and Gender Information Value Date Recorded Sex Assigned at Male 10/10/2022 3:37 PM [employer] Gender Identity Male 10/10/2022 3:37 PM [employer] Sexual Orientation Straight 10/10/2022 3: 37 PM [employer] Obstetrics History Last Filed Vital Signs Vital Sign Reading Time Taken Comments Blood Pressure 138/84 06/21/2024 3:21 PM CDT Pulse 112 06/21/2024 3:21 PM CDT Temperature 36.8 ??C (98.3 ??F) 11/30/2022 9:50 AM CD T Respiratory Rate 14 02/06/2024 12:4 5 PM CDT Oxygen Saturation 96% 04/27/2024 3:43 PM CDT Inhaled Oxygen Concentration - - Weight 104.7 kg (230 lb 14.4 oz) 06/21/2024 3:21 PM CDT Height 176.5 cm (5' 9.5) 06/21/2024 3:21 PM CDT Body Mass Index 33.61 06/21/2024 3:21 PM CDT Plan of Treatment Upcoming Encounters Date Type Department Care Team (Late st Contact Info) Description 07/26/2024 7:50 AM [employer] Office Visit [facility] [address] [place] [address] Hina Dunham, JOHNNY [address] [place] [address] Health Maintenance Due Date Last Done Comments Zoster (shingles) series for age 50+ (2 of 2) 07/13/2018 05/18/2018 COVID-19 vaccine series ( season) 2024 09/05/2023, 06/21/2022, 09/22/2021, Additional history exists Influenza for age 65+ 05/09/2024 09/05/2023 , 05/08/2022, 05/08/2022, Additional history exists Depression screening for age 12+ 09/05/2024 09/05/2023, 02/12/2023, 08/08/2022, Additional history exists Medicare Wellness for age 65+ 09/05/2024, 08/08/2022, 01/30/2021, Additional history exists BMI (ht and wt on same day) for age 18+ 06/21/2025 06/21/2024, 04/27/2024, 10/06/2023, Additional history exists Colonoscopy through age 75 08/08/202708/08, 06/03/2016, 06/03/2016, Additional history exists Tetanus booster 05/18/2028 05/18/2018, 09/17/2006 Lipids for age 45-75 09/05/2028 09/05/2023, 01/30/2021, 08/23/2019, Additional history exists Tdap Completed 09/17/2006 Hepatitis C screening for ag e 18-79 Completed 08/23/2019 Pneumococcal series for age 65+ Completed 10/04/2021, 08/19/2020, 05/18/2018 AAA screening age 65-74 Completed 10/31/2021 Goals Goal Patient Goal Type Associated Problems Recent Progress Patient-Stated? Author BLOOD PRESSURE - MAINTAINS BP less than 140/90 Blood Pressure No Hina Dunham, JOHNNY Medical Devices Implanted Type Area Account Developer Device Identifier Shelf Expiration Date Model / Serial / Lot Mesh Ventral 1.7in Ventralex St W/Strap - [id number] Implanted:Qty: 1 on 09/23/2019 by Earnest Garcia DO at [facility] N/A: Abdomen [employer] 04/04/2020 [id number] / / [id number] Procedures Procedure Name Priority Date/Time Associated Diagnosis Comments HEMOGLOBIN A1C STAT 06/28/2024 2:43 PM CDT High risk medication use [facility] DOT UA DIP Routine 04/27/2024 3:41 PM CDT Encounter for examination required by Department of Transportation (DOT) LIPID PANEL W REFLEX MEASURED LDL Routine 09/05/2023 3:44 PM [employer] Lipid screening ST elevation myocardial infarction involving right coronary artery (HC) COLONOSCOPY 08/08/2022 3:11 PM [employer] US ABD AORTA SCREENING Routine 10/31/2021 5:18 PM [employer] Screening for AAA (abdominal aortic aneurysm) ANTI HCV Routine 08/23/2019 5:38 PM [employer] Need for hepatitis C screening test from Last 3 Months or Most Recently Relevant to Health Maintenance Results * (ABNORMAL) STAT Hemoglobin A1C (06/28/2024 2:43 PM CDT) HEMOGLOBIN A1C SCREENING 7.1(H) <=6.4 % 06/28/2024 3:01 PM CDT [facility] Blood BLOOD SPECIMEN / Unknown [facility] Collect / Unknown 06/28/2024 2:43 PM CDT 06/28/2024 2:43 PM CDT Narrative [facility] - 06/28/2024 3:01 PM CDT ? (<5.7%) ?Normal ? (5.7% to 6.4%) ? Indicates prediabetes ? (>=6.5%) ? Confirms diabetes Falsely low levels may be seen with: Recent Transfusion, Recent Significant Blood Loss, Hemolytic Diseases, or Falsely elevated levels may be seen with: Untreated Anemias, Splenectomy Hina Dunham NP CHEMISTRY [facility] [address] [place] [address] * [facility] DOT UA DIP (04/27/2024 3:41 PM CDT) COLOR Yellow Yellow Color 04/27/2024 3:43 PM CDT [facility] CLARITY Clear Clear Clarity 04/27/2024 3:43 PM CDT [facility] SPECIFIC GRAVITY,URINE 1.020 1.010, 1.015, 1.020, 1.025 04/27/2024 3:43 PM CDT [facility] PH,URINE 7.0 6.0, 7.0, 8.0, 5.5, 6.5, 7.5, 8.5 04/27/2024 3:43 PM CDT [facility] UROBILINOGEN, QUALITATIVE Normal Normal EU/dl 04/27/2024 3:43 PM CDT [facility] PROTEIN, URINE Negative Negative mg/dL 04/27/2024 3:43 PM CDT [facility] GLUCOSE, URINE Negative Negative mg/dL 04/27/2024 3:43 PM CDT [facility] KETONES,URINE Negative Negative mg/dL 04/27/2024 3:43 PM CDT [facility] BILIRUBIN,URI NE Negative Negative 04/27/2024 3:43 PM CDT [facility] OCCULT BLOOD,URINE Negative Negative 04/27/2024 3:43 PM CDT [facility] NITRITE Negative Negative 04/27/2024 3:43 PM CDT [facility] LEUKOCYTE ESTERASE Negative Negative 04/27/2024 3:43 PM CDT [facility] Urine URINE SPECIMEN / Unknown Non-Blood / Unknown 04/27/2024 3:41 PM CDT 04/27/2024 3:41 PM CDT Kwesi Law MD LABORATORY [facility] [address] [place] [address], * (ABNORMAL) LIPID PANEL W REFLEX MEASURED LDL (09/05/2023 3:44 PM [employer]) CHOLESTEROL,TOTAL 156 100 - 199 mg/dL 09/05/2023 4:[address] [facility] Comment: Cholesterol, Total Reference Ranges Desirable <200 mg/dL Borderline 200-239 mg/dL High >=240 mg/dL TRIGLYCERIDES 192(H) <150 mg/dL 09/05/2023 4:[address] [facility] HDL CHOLESTEROL 54 >40 mg/dL 4:[address] [facility] NON-HDL CHOLESTEROL 102 <145 mg/dl 09/05/2023 4:[address] [facility] CHOL/HDL RATIO 2.89 <4.50 09/05/2023 4:[address] [facility] LDL CHOLESTEROL 64 <=130 mg/dL 09/05/2023 4:59 PM [employer] [facility] VLDL CHOLESTEROL 38(H) <=30 mg/dL 09/05/2023 4:59 PM [employer] [facility] PROVIDER ORDERED STATUS RANDOM 09/05/2023 4:59 PM [employer] [facility] Blood BLOOD SPECIMEN / Unknown Venipuncture / Unknown 09/05/2023 3:44 PM [employer] 09/05/2023 3:44 PM [employer] Hina Dunham COMPUTER NETWORK SUPPORT SPECIALIST CHEMISTRY [facility] [address] [place] [address] * COLONOSCOPY (08/08/2022 3:11 PM [employer]) 08/08/2022 3:11 PM [employer] Narrative Transcriptions Kath Hernandez DO - 08/08/2022 6:32 PM CST Patient Name: Edgard Teague Procedure Date: 08/08/2022 Gender: Male Date of : 1955 Admit Type: Ambulatory Procedure: Colonoscopy Proceduralist: Kath Hernandez MD Referring MD: Hina Dunham Indications/Pre-Op Diagnosis: Surveillance: Personal history ofadenomatous polyps on last colonoscopy > 5 years ago Medications: Propofol per Anesthesia, MonitoredAnesthesia Care Procedure Description: The patient had risks, benefits and alternatives explained to andgave informed consent. The patient had a stable cardiopulmonary status and judged an adequate candidate for conscious sedation. The endoscope -[id number] was passed through the anus andadvanced to the cecum, identified by appendiceal orifice and ileocecal valve.The colonoscopy was performed without difficulty. The patient toleratedthe procedure well. The quality of the bowel preparation was excellent.The ileocecal valve, appendiceal orifice, and rectum were photographed. Complications: No immediate complications. Estimated blood loss: Minimal. Estimated Blood Loss & Specimen: Estimated blood loss was minimal. Specimen collected - Yes and sent to Laboratory Findings: A 3 mm polyp was found in the ascending colon @ 90cm. The polyp was sessile. The polyp was removed with a piecemeal technique using acold biopsy forceps. Resection and retrieval were complete. Verificationof patient identification for the specimen was done. Estimated bloodloss was minimal. Two 4 to 5 mm polyps were found in the descending colon @ 30cm. The polyps were sessile. The polyps were removed with a piecemealtechnique using a cold biopsy forceps and sent in the same pathology specimencup. Resection and retrieval were complete. Verification of patient identification for the specimen was done. Estimated blood loss was minimal. There was a small submucosal lipoma which was not biopsied. The examwas otherwise without abnormality. Impressions/Post-Op Diagnosis: - One 3 mm polyp in the ascending colon, removed piecemeal using acold biopsy forceps. Resected and retrieved. - Two 4 to 5 mm polyps in the descending colon, removed piecemealusing a cold biopsy forceps. Resected and retrieved. - The examination was otherwise normal. Recommendation: - Discharge patient to home (ambulatory). - Resume previous diet today. - Continue present medications. - Await pathology results. - Repeat colonoscopy in 5-10 years for surveillance based onpathology results. Kath Hernandez MD 08/08/2022 6:32:42 PM This report has been signed electronically. Note Initiated On: 08/08/2022 3:11 PM Kath Hernandez DO PROCEDURE ORD * US ABD AORTA SCREENING (10/31/2021 5:18 PM [employer]) Anatomical Region Laterality Modality Abdomen, AORTA Ultrasound 11/01/2021 7:05 AM [employer] Impressions 11/01/2021 7:05 AM [employer] Normal ultrasound of the abdominal aorta. No sign of aneurysm. Dictated by Teodora Almanza MD @ 11/01/2021 7:05:28 AM (Electronically Signed) Narrative 11/01/2021 7:05 AM [employer] For Patients: ??As a result of the Cures Act, medical imaging exams and procedure reports are released immediately into your electronic medical record. ??You may view this report before your referring provider. ??If you have questions, please contact your health care provider. INDICATION: Screening for abdominal aortic aneurysm. TECHNIQUE: Ultrasound aorta with color Doppler analysis. COMPARISON: None FINDINGS: The proximal abdominal aorta measures 3.0 x 2.4 cm, mid aorta measures 2.1 x 2.3 cm, distal aorta measures 1.8 x 1.6 cm, right common iliac artery measures 1.3 x 1.1 cm, and the left common iliac artery measures 1.2 x 1.0 cm. There are no periaortic abnormalities evident. Procedure Note Adán Almanza MD - 11/01/2021 For Patients: As a result of the Cures Act, medical imagingexams and procedure reports are released immediately into your electronicmedical record. You may view this report before your referring provider.If you have questions, please contact your health care provider. INDICATION: Screening for abdominal aortic aneurysm. TECHNIQUE: Ultrasound aorta with color Doppler analysis. COMPARISON: None FINDINGS: The proximal abdominal aorta measures 3.0 x 2.4 cm, mid aorta measures 2.1x 2.3 cm, distal aorta measures 1.8 x 1.6 cm, right common iliac arterymeasures 1.3 x 1.1 cm, and the left common iliac artery measures 1.2 x 1.0cm. There are no periaortic abnormalities evident. IMPRESSION: Normal ultrasound of the abdominal aorta. No sign of aneurysm. Dictated by Teodora Almanza MD @ 11/01/2021 7:05:28 AM (Electronically Signed) [facility] US * ANTI HCV (08/23/2019 5:38 PM [employer]) HEPATITIS C ANTIBODY Non-React cecilio Non-React cecilio 08/24/2019 5:35 PM [employer] [facility] Comment:Antibodies to HCV no t detected; does not exclude the possibility of exposure to HCV. Blood BLOOD SPECIMEN / Unknown Venipuncture / Unknown 08/23/2019 5:38 PM [employer] 08/23/2019 5:38 PM [employer] Hina Dunham NP SEND OUTS [facility] [address] [place] [address], from Last 3 Months or Most Recently Relevant to Health Maintenance Advance Directives * Full Code (Latest Code Status on File) Date Activated Date Inactivated Comments 09/23/2019 2:01 PM 09/23/2019 11:54 PM Question Answer Comments Code Status Discussion: Discussed * Full Code Date Activated Date Inactivated Comments 01/16/2016 10:52 AM 01/16/2016 7:42 PM Care Teams Stock Control Clerk Relationship Specialty Start Date End Date Hina Dunham NP [address] [facility] [place] [address] PCP - General Family Practice 12/08/15
--- OUTSIDE RECORDS SUMMARY | 2024-07-11 07:47 | XMS_ITS | Referral Summary ---
Author Organization [facility] Address [address] [place] [address] Care Team Providers Care Outbound Sales Professional Name Role Phone Elsewhere, Pcp Primary Care Provider Unavailabl e Source Comments Patient records contain information from all sites at [facility]. For routine questions regarding patient records, call [phone] during business hours, M-F 8:00 AM - 5:00 PM Central Time. Record requests for emergency care only can be directed to [phone] at any time.[facility] Encounters Date Type Department Care Team Description 06/02/2024 Refill Department of Cardiovascular Diseases in [place] [address] [place] [phone] Dakota Hummel, MASOOD, C.N.P. Med Refill from Last 3 Months Allergies No known active allergies Medications * This document contains information received from the source organization and may not represent a complete record from that organization. aspirin 81 mg chewable tablet Chew 1 tablet (81 mg total) daily. 30 tablet 11 3 Active atorvastatin (LIPITOR) 80 mg tablet Take 1 tablet (80 mg total) by mouth daily. 90 tablet 3 11/04/2022 4:45 PM POULTRY HUSBANDRY TEACHER 3 Active nitroglycerin (NITROSTAT) 0.[address] 1 tablet (0.4 mg total) under the tongue every 5 (five) minutes as needed for chest pain. May repeat every 5 minutes for up to 3 doses 100 tablet 11 11/04/2022 4:45 PM POULTRY HUSBANDRY TEACHER 3 Active sodium fluoride-pot nitrate 1.1-5 % [...] Post 12/09/2022 Atherosclerotic Heart Diseas e Of [place] Coronary Artery Without Angina Pectoris 12/09/2022 Mitral Valve Acquired Disorder 12/09/2022 Hypertensive Heart Disease Without Heart Failure 11/03/2022 ST Elevation Myocardial Infa rction Involving Right Coronary Artery 11/03/2022 Dysfunction Erectile 10/30/2022 Overview (10/30/2022): Added automatically from request for surgery [id number] Peyronie's Disease 10/30/2022 Overview (10/30/2022): Added automatically from request for surgery [id number] Obstructive Sleep Apnea Adult 07/11/2021 Umbilical Hernia Without Obstruction Or Gangrene 09/16/2019 Hydrocele 11/13/2009 Overview (10/31/2022): Left Resolved Problems Problem Noted Date Diagnosed Date Resolved Date ST Elevation Myocardial Infa rction Of Unspecified Site 11/03/2022 11/03/2022 Social History Tobacco Use Types Packs/Day Years [...] often do you attend chur ch or roman catholic services? 1 to 4 times per year 10/29/2022 Do you belong to any clubs o r organizations such as amish groups, unions, fraternal or athletic groups, or [...] and heating? Not hard at all 10/29/2022 [facility] [place] of Occupat ional Health - Occupational Stress [...] place to sleep or slept in a prison (including now)? No 10/29/2022 Nutrition Answer Date [...] Sex Assigned at Male 10/30/2022 9:15 AM POULTRY HUSBANDRY TEACHER Legal Sex Male 4:06 PM POULTRY HUSBANDRY TEACHER Gender Identity Male 10/30/2022 9:15 AM POULTRY HUSBANDRY TEACHER Sexual Orientation Straight 10/30/2022 9: 15 AM POULTRY HUSBANDRY TEACHER Last Filed Vital Signs Vital Sign Reading Time Taken Comments Blood Pressure 148/84 03/10/2023 11:27 AM CDT Pulse 62 03/10/2023 11:27 AM CDT Temperature 36.3 ??C (97.3 ??F) 11/04/2022 3:45 PM CS T Respiratory Rate 27 11/04/2022 3:45 PM POULTRY HUSBANDRY TEACHER Oxygen Saturation 94% 03/10/2023 11:24 AM CDT Inhaled Oxygen Concentration - - Weight 94.6 kg (208 lb 8.9 oz) 03/10/2023 11:24 AM CDT Height 172.7 cm (5' 8) 11/03/2022 3:30 AM POULTRY HUSBANDRY TEACHER Body Mass Index 31.71 11/03/2022 3:30 AM POULTRY HUSBANDRY TEACHER Plan of Treatment Not on file Medical Devices Implanted Type Area Well Service Derrick Worker Device Identifier Shelf Expiration Date Model / Serial / Lot Stnt Synergy Xd De 5.00x12 - [id number] Implanted:Qty : 1 on 11/03/2022 by Neo Vasquez M.D., Ph.D. at [facility] Cardiac Stent N/A: Coronary [employer] 08/15/2023 [id number] / / [id number] Description:Mid RCA Procedures Procedure Name Priority Date/Time Associated Diagnosis Comments SODIUM, S/P Routine 10/20/2023 11:35 AM POULTRY HUSBANDRY TEACHER Hypertension Essential Primary POTASSIUM, S/P Routine 10/20/2023 11:35 AM POULTRY HUSBANDRY TEACHER Hypertension Essential Primary CREATININE WITH EGFR, S/P Routine 10/20/2023 11:35 AM POULTRY HUSBANDRY TEACHER Hypertension Essential Primary BASIC METABOLIC PANEL, S/P Routine 12/20/2022 12:[address] Elevation Myocardial Infarction Involving Right Coronary Artery (HCC) LIPID PANEL, S Timed 11/03/2022 7:10 AM POULTRY HUSBANDRY TEACHER from Last 3 Months or Most Recently Relevant to Health Maintenance Results * Sodium (10/20/2023 11:35 AM POULTRY HUSBANDRY TEACHER) Sodium, P 142 135 - 145 mmol/L 10/20/2023 2:18 PM POULTRY HUSBANDRY TEACHER OWAT Blood (Blood, Venous) 10/20/2023 11:35 AM POULTRY HUSBANDRY TEACHER 10/20/2023 1:32 PM POULTRY HUSBANDRY TEACHER us Dakota Hummel APRN, C.N.P. LAB BLOOD ADD-ON Noa l Result Performing Organization Address [facility] Co de Phone Number [facility] [address] [place] [phone], [place] OWAT [facility] [place] [address] [place] [phone] * Potassium (10/20/2023 11:35 AM POULTRY HUSBANDRY TEACHER) Potassium, P 4.1 3.6 - 5.2 mmol/L 10/20/2023 2:18 PM POULTRY HUSBANDRY TEACHER OWAT Blood (Blood, Venous) 10/20/2023 11:35 AM POULTRY HUSBANDRY TEACHER 10/20/2023 1:32 PM POULTRY HUSBANDRY TEACHER us Dakota Hummel APRN, C.N.P. LAB BLOOD ADD-ON Noa l Result Performing Organization Address [facility] Co de Phone Number [facility] [address] [place] [phone], [place] OWAT [facility] [place] [address] [place] [phone] * Creatinine with Estimated GFR (10/20/2023 11:35 AM POULTRY HUSBANDRY TEACHER) Creatinine 1.20 0.74 - 1.35 mg/dL 10/20/2023 2:18 PM POULTRY HUSBANDRY TEACHER OWAT Estimated GFR (eGFR) 65 >=60 mL/min/BSA 10/20/2023 2:18 PM POULTRY HUSBANDRY TEACHER OWAT Comment: Estimated GFR calculated using the 2020 CKD_EPI creatinine equation. Blood (Blood, Venous) 10/20/2023 11:35 AM POULTRY HUSBANDRY TEACHER 10/20/2023 1:32 PM POULTRY HUSBANDRY TEACHER us Dakota Hummel APRN, C.N.P. LAB BLOOD ADD-ON Noa l Result [facility] [address] [place] [address], [facility] OWAT [facility] [place] [address] [place] [address] * Basic Metabolic Panel (12/20/2022 12:38 PM [...] Result [facility] [address] [place] [address], [facility] OWAT [facility] [place] [address] [place] [address] * Lipid Panel (11/03/2022 7:10 AM POULTRY HUSBANDRY TEACHER) Triglycerides 48 mg/dL 11/03/2022 9:01 AM POULTRY HUSBANDRY TEACHER DTL Comment: ----REFERENCE VALUE---- Normal: <150 mg/dL Borderline High: 150-199 mg/dL High: 200-499 mg/dL Very High: > or =500 mg/dL Cholesterol, Total 171 mg/dL 2022 9:01 AM POULTRY HUSBANDRY TEACHER DTL Comment: ----REFERENCE VALUE---- Desirable: < 200 mg/dL Borderline High: 200 - 239 mg/dL High: > or = 240 mg/dL Cholesterol, LDL, Calculated 118 mg/dL 11/03/2022 9:01 AM POULTRY HUSBANDRY TEACHER DTL Comment: ----REFERENCE VALUE---- Desirable: <100 mg/dL Above Desirable: 100-129 mg/dL Borderline High: 130-159 mg/dL High: 160-189 mg/dL Very High: >=190 mg/dL ----ADDITIONAL INFORMATION---- LDL cholesterol calculated using the Sharma/NIH equation. Cholesterol, HDL, S 43 >=40 mg/dL 11/03/2022 9:01 AM POULTRY HUSBANDRY TEACHER DTL Cholesterol, Non-HDL, Calculated 128 mg/dL 11/03/2022 9:01 AM POULTRY HUSBANDRY TEACHER DTL Comment: ----REFERENCE VALUE---- Desirable: <130 mg/dL Above Desirable: 130-159 mg/dL Borderline High: 160-189 mg/dL High: 190-219 mg/dL Very High: > or =220 mg/dL Fasting (8 HR or more) Yes 11/03/2022 8:31 AM POULTRY HUSBANDRY TEACHER DTL Blood (Blood, Venous) 11/03/2022 7:10 AM POULTRY HUSBANDRY TEACHER 11/03/2022 8:31 AM POULTRY HUSBANDRY TEACHER us Angeline White M.D., M.S. LAB BLOOD ADD-ON Final R esult [facility] [address] [place] [address], [place] DTL [facility] [address] [place] [address] from Last 3 Months or Most Recently Relevant to Health Maintenance Insurance [employer] Address: [address] [address] Advance Directives For more information, please contact: [phone] * Full Code (Latest Code Status on File) Date Activated Date Inactivated Comments 11/03/2022 6:18 AM 11/04/2022 6:46 PM Question Answer Comments Full Code: Discussed * Full Code Date Activated Date Inactivated Comments 11/03/2022 3:21 AM 11/03/2022 6:18 AM Question Answer Comments Full Code: Discussed Care Teams Outbound Sales Professional Relationship Specialty Start Date End Date Elsewhere, Pcp PCP - General Internal Medicine 11/04/22
--- OUTSIDE RECORDS SUMMARY | 2024-07-11 07:47 | XMS_ITS ---
Author Organization [facility] Address [address] [place] [address] Care Team Providers Care Utility Helicopter Repairer Name Role Phone Unavailable Unavailable Unavailable Surgery Details Not on file Complications Check Surgery Details section. Procedure Estimated Blood Loss Check Surgery Details section. Procedure Findings Check Surgery Details section. Procedure Specimens Taken Check Surgery Details section.
--- OUTSIDE RECORDS SUMMARY | 2024-07-11 07:47 | XMS_ITS | Encounter Summary ---
Author Organization [facility] Address [address] [place] [address] Care Team Providers Care Waterworks Supervisor Name Role Phone Elsewhere, Pcp Primary Care Provider Unavailabl e Reason for Visit * Reason Comments Med Refill Encounter Details Date Type Department Care Team (Late st Contact Info) Description 04/08/2024 Refill Department of Cardiovascular Diseases in [place], [place] [address] [place] [address] Dakota Hummel, MASOOD, C.N.P. [address] [place] [phone] Med Refill Social History Tobacco Use Types Packs/Day Years Used Date Smoking Tobacco: Never Passive Smoke Exposure: Past Smokeless Tobacco: Never Alcohol Use Standard Drinks/Week Comments Yes 0 [...] often do you attend chur ch or tenriism services? 1 to 4 times per year 10/29/2022 Do you belong to any clubs o r organizations such as shinto groups, unions, fraternal or athletic groups, or [...] and heating? Not hard at all 10/29/2022 [facility] of Occupat ional Health - Occupational Stress [...] money to buy more. Never true 10/29/19 23 Within the past 12 months, t he [...] place to sleep or slept in a skilled nursing (including now)? No 10/29/2022 Nutrition Answer Date [...] Sex Assigned at Male 10/30/2022 9:15 AM INTERNATIONAL STUDENT COUNSELOR Legal Sex Male 4:06 PM INTERNATIONAL STUDENT COUNSELOR Gender Identity Male 10/30/2022 9:15 AM INTERNATIONAL STUDENT COUNSELOR Sexual Orientation Straight 10/30/2022 9: 15 AM INTERNATIONAL STUDENT COUNSELOR documented as of this encounter Plan of Treatment Not on file documented as of this encounter Visit Diagnoses Not on filedocumented in this encounter Care Teams Waterworks Supervisor Relationship Specialty Start Date End Date Elsewhere, Pcp PCP - General Internal Medicine 11/04/22 documented as of this encounter
--- OUTSIDE RECORDS SUMMARY | 2024-07-11 07:47 | XMS_ITS | Encounter Summary ---
Author Organization [facility] Address [address] [place] [address] Care Team Providers Care Mask Designer Name Role Phone Elsewhere, Pcp Primary Care Provider Unavailabl e Reason for Visit * Reason Comments Med Refill Encounter Details Date Type Department Care Team (Late st Contact Info) Description 06/02/2024 Refill Department of Cardiovascular Diseases in [place], [place] [address] [place] [address] Dakota Hummel, MASOOD, C.N.P. [address] [place] [phone] Med Refill Social History Tobacco Use Types [...] often do you attend chur ch or orthodoxy services? 1 to 4 times per year 10/29/2022 Do you belong to any clubs o r organizations such as anglican groups, unions, fraternal or athletic groups, or [...] and heating? Not hard at all 10/29/2022 [facility] of Occupat ional Health - Occupational Stress [...] place to sleep or slept in a fdc (including now)? No 10/29/2022 Nutrition Answer Date [...] Sex Assigned at Male 10/30/2022 9:15 AM GRAVITY METER OPERATOR Legal Sex Male 4:06 PM GRAVITY METER OPERATOR Gender Identity Male 10/30/2022 9:15 AM GRAVITY METER OPERATOR Sexual Orientation Straight 10/30/2022 9: 15 AM GRAVITY METER OPERATOR documented as of this encounter Plan of Treatment Not on file documented as of this encounter Visit Diagnoses Not on filedocumented in this encounter Care Teams Mask Designer Relationship Specialty Start Date End Date Elsewhere, Pcp PCP - General Internal Medicine 11/04/22 documented as of this encounter
--- NOTE | 2024-07-11 07:51 | ED.GENADULT ---
HPI - General Adult General Chief complaint: Fall/Minor Trauma Stated complaint: Fell, facial cuts and bleeding Time Seen by Provider: 07/11/24 07:18 History of Present Illness HPI narrative: Patient reports striking head on side of trailer just prior to arrival in ED. Denies LOC. Has large well approximated laceration on forehead. Comes with several saturated bloody paper towel though bleeding now controlled. 69-year-old man presenting to the emergency department with friend and co-worker after striking his head on a trailer. Had been setting up for work today I believe when slipped on the trailer striking his left brow/forehead on the floor of the trailer. Sustained laceration. They note decent amount of blood. Not lightheaded. Denies neck or back pain. It is not clear that there was a loss of consciousness. No visual disturbance. No nausea. Related Data Home Medications ?Medication ?Instructions ?Recorded ?Confirmed amlodipine 10 mg tablet 10 mg PO QDAY 08/26/22 09/02/22 atenolol 50 mg tablet 50 mg PO QDAY 08/26/22 09/02/22 hydrochlorothiazide 50 mg tablet 50 mg PO QDAY 08/26/22 09/02/22 losartan 100 mg tablet 100 mg PO QDAY 08/26/22 09/02/22 meloxicam 15 mg tablet 15 mg PO QDAY 08/26/22 09/02/22 sodium fluoride 1.1 %-potassium 1 applic PO DAILY 08/26/22 09/02/22 nitrate 5 % dental paste tadalafil 20 mg tablet 20 mg PO PRN 08/26/22 08/26/22 Allergies Allergy/AdvReac Type Severity Reaction Status Date / Time No Known Drug Allergies Allergy Verified 09/02/22 19:44 Review of Systems Status of ROS: Reports: 6 or more systems reviewed and unremarkable except as noted in History and below [facility] Medical History Encounter related to worker's compensation claim (10/19/18) ?Z02.6 - Encounter for examination for insurance purposes (ICD-10) Surgical History History of back surgery ?Z98.890 - Other specified postprocedural states (ICD-10) History of appendectomy ?Z90.49 - Acquired absence of other specified parts of digestive tract (ICD-10) Family History Other High cholesterol Renal cancer Social History Smoking Status: Former smoker Do you use any of these nicotine containing products: None Second hand tobacco smoke exposure: No How often do you have a drink containing alcohol: never AUDIT-C Alcohol total score: 0 Non-prescribed substance use: denies use Exam Narrative: Exam Narrative: Very pleasant. Easily conversant. Cranial nerves 2-12 intact. Pupils are equal and brisk. Extraocular movements are full. Neck is supple with full movements with maybe a little left trapezial muscle soreness. Back is without deformity and nontender. Moving all extremities without difficulty. No pain to palpation about the shoulder clavicles. There is a light abrasion at the left zygoma. Most notable though is a large laceration of 2-1/4 inches extending diagonally through the left eyebrow and up into the forehead. Gapping. Full dermal. Larger abrasion surrounding this and wound is a little dirty/gritty. Blood pressure noted to be a little elevated. Const: Vital Signs, click to edit/add: Vital Signs - 24 hr 07/11/24 07:15 07/11/24 07:38 Temperature 97.6 F Pulse Rate [Pulse Oximeter] 125 H 103 H Respiratory Rate 22 Blood Pressure [Ri ght Upper Arm] 191/111 H 166/106 H Pulse Oximetry 95 96 Oxygen Delivery Me thod Room Air Room Air Documenting provider has reviewed patient's vital signs: yes Course Vital Signs Vital signs: Initial Vital Signs Temperature 97.6 F 07/11/24 07:15 Temperature Source Temporal Artery Scan 07/11/24 07:15 Pulse Rate 125 H 07/11/24 07:15 Respiratory Rate 22 07/11/24 07:15 Blood Pressure 191/111 H 07/11/24 07:15 Blood Pressure Mean 137 H 07/11/24 07:15 Pulse Oximetry 95 07/11/24 07:15 Oxygen Delivery Method Room Air 07/11/24 07:15 Vital Signs Temperature 97.6 F 07/11/24 07:15 Pulse Rate 125 H 07/11/24 07:15 Respiratory Rate 22 07/11/24 07:15 Blood Pressure 191/111 H 07/11/24 07:15 Pulse Oximetry 95 07/11/24 07:15 Oxygen Delivery Method Room Air 07/11/24 07:15 Temperature 97.6 F 07/11/24 07:15 Pulse Rate 95 07/11/24 08:51 Respiratory Rate 22 07/11/24 07:15 Blood Pressure 166/106 H 07/11/24 07:38 Pulse Oximetry 96 07/11/24 08:51 Oxygen Delivery Method Room Air 07/11/24 08:51 Medical Decision Making MDM Narrative Medical decision making narrative: Will need repair of this laceration with good clean out. This was quite an impact and I would at least scan his head. Is not anticoagulated. Again denies neck pain. Sent for head CT. Reviewed by me without acute injury, without intracranial bleed evident. Bony calvarium appears intact. I did return to anesthetize this wound. Injected with lidocaine with epinephrine. Cleansed and scrubbed with Hibiclens and water this and the abrasion at the left zygoma. Further irrigated this wound with normal saline pressure irrigation. I closed this wound with combination of 4 and 5-0 Ethilon interrupted sutures. Very good wound approximation and control of bleeding. Antibiotic ointment and Telfa placed. See patient discharge plan for further discussion Medical Records Medical records reviewed: Yes I reviewed the patient's medical records Discharge Plan Discharge Clinical Impression: Laceration of brow without complication, Laceration of scalp, Closed head injury Additional Instructions: sutures out in 7-8 days. antibiotic ointment for 4-5 days and then to a dry dressing. ok to get wet but try not to soak while sutures are in. for further scar reduction/wound healing if desired -- after the scab falls off, can apply daily vitamin e oil or something like maderma or silicone-containing ointments or bandaids daily. especially protect from sun exposure for the first 9 - 12 months. Watch for spreading redness after 2 days accompanied by heat, swelling, marked increase in pain, purulent drainage Prescriptions: No Action sodium fluoride-pot nitrate 1.1-5 % paste 1 applic PO DAILY amlodipine 10 mg tablet 10 mg PO QDAY Patient Comments: TAKE 1 TABLET BY MOUTH EVERY DAY meloxicam 15 mg tablet 15 mg PO QDAY Patient Comments: TAKE 1 TABLET BY MOUTH EVERY DAY atenolol 50 mg tablet 50 mg PO QDAY Patient Comments: TAKE 1 TABLET BY MOUTH EVERY DAY losartan 100 mg tablet 100 mg PO QDAY Patient Comments: TAKE 1 TABLET BY MOUTH EVERY DAY hydrochlorothiazide 50 mg tablet 50 mg PO QDAY Patient Comments: TAKE 1 TABLET BY MOUTH EVERY DAY tadalafil 20 mg tablet 20 mg PO PRN Patient Comments: TAKE 1 TABLET BY MOUTH DAILY IF NEEDED FOR ERECTILE DYSFUNCTION. TAKE 30 MINUTES BEFORE SEX Follow Up/Referrals: Hina Dunham CNP [Primary Care Provider] - Stand Alone Forms: [facility] Info Instructions
[2024-07-11 08:51] VITALS: PULSE 95; O2SAT 96
== END 2024-07-11 08:53 | disposition home or self-care (01) ==
PROVIDERS: Emergency Provider Family Medicine; PCP Nurse Practitioner Family
DX: S01.112A Laceration without foreign body of left eyelid and periocular area, initial encounter (principal); W22.8XXA Striking against or struck by other objects, initial encounter
CPT/HCPCS: 12011; 12001; 70450; 99283; 99284

== ENCOUNTER 2024-07-19 14:27 | Emergency (ER) | payer MEDICARE, SELFPAY | END 2024-07-19 14:52 | disposition left against medical advice (07) | LOC: ED 14:51 | PROVIDERS: Emergency Provider Family Medicine; PCP Nurse Practitioner Family | DX: Z53.21 Procedure and treatment not carried out due to patient leaving prior to being seen by health care provider (principal) ==